=== PATIENT | female | born 1955 | race Caucasian/White ===

== ENCOUNTER → 2018-01-17 | Outpatient (CLI) | payer BC ==
[~2018-01-17] MED LIST: IBU200 PO; MULT-1335 PO
--- NOTE | 2018-01-18 16:06 | RADIOLOGY IMAGING REPORT ---
FACILITY: [facility] [place] PATIENT NAME: AL LLOYD : [id number] MR: [id number] V: [id number] EXAM DATE: ORDERING PHYSICIAN: ROGELIO CLARK TECHNOLOGIST: Amirah Ludwig PROCEDURE:BILATERAL DIGITAL SCREENING MAMMOGRAM WITH CAD ASSISTED INTERPRETATION & 3D TOMOSYNTHESIS COMPARISON:Prior mammograms. INDICATIONS:SCREENING FINDINGS: Scattered fibroglandular densities are present in both breasts. Small benign appearing nodularity are present in the Right upper outer quadrant, unchanged. Small lymph nodes are present in each axilla. DIAGNOSTIC CATEGORY 1--NEGATIVE. RECOMMENDATIONS: ROUTINE MAMMOGRAM AND CLINICAL EVALUATION IN 1 YR. IMPRESSION: BIRADS 1: Negative. Dictated by: West Perez M.D. on 01/18/2018 at 14:18 Transcribed by: CALEB on 01/18/2018 at 14:23 Approved by: West Perez M.D. on 01/18/2018 at 16:05 [facility]
== END ==
LOC: MAMO 00:28
PROVIDERS: ATTEND Nurse Practitioner Family
DX: Z12.31 Encounter for screening mammogram for malignant neoplasm of breast (principal)
CPT/HCPCS: 77063; 77067